=== PATIENT | female | born 1990 | race African-American/Black ===

== ENCOUNTER 2020-04-14 18:24 | Emergency (ER) | payer OTHER ==
[~2020-04-14] VITALS: Ht 162.6 cm; Wt 72.7 kg
[2020-04-14 20:11] VITALS: BP 118/64; PULSE 70; TEMP 97.5
== END 2020-04-14 20:10 | disposition home or self-care (01) ==
LOC: COL.ER 18:24
DX: T59.91XA Toxic effect of unspecified gases, fumes and vapors, accidental (unintentional), initial encounter (principal)